=== PATIENT | male | born 1985 | race Hispanic/Latino ===

== ENCOUNTER 2018-08-28 22:45 | Emergency (ER) | payer OTHER ==
--- OUTSIDE RECORDS SUMMARY | 2018-08-28 22:48 | XMS REPORT ---
:1985 Author Organization eClinicalWorks Care Team Providers Name Role Phone Winston Gonzalez Provider Role Unavailable Allergies, Adverse Reactions, Alerts Substance Reaction Event Type N.K.D.A. Info Not Available Non Drug Allergy Problems Problem Type Condition Code Onset Dates Condition Status Assessment Encounter for immunization Z23 Active Problem Gastroesophageal reflux disease with K21.0 Active esophagitis Problem Family history of diabetes during Z84.89 Active Problem Hypertriglyceridemia E78.1 Active Assessment Family history of diabetes during Z8489 Active Assessment Hypertriglyceridemia E78.1 Active Assessment Gastroesophageal reflux disease with K21.0 Active esophagitis Medications Medication Code Code Instructions Start End Status Dosage System Date Date Pantoprazole [facility] [id number] 20 MG Orally Nov 07, Active 1 tablet Sodium Once a day 2018 Results No Known Results Immunizations Vaccine Administration Date TDAP > 7 Years-Adacel Nov 07, 2017 Summary Purpose eClinicalWorks Submission
[2018-08-29 00:08] LABS: Urine Blood NEGATIVE (NEG); Urine Glucose NEGATIVE (NEG); Urine Protein NEGATIVE (NEG)
[2018-08-29 00:12] LABS: Urine Bacteria <20 /HPF (NONE SEEN); Urine Culture Reflex Order NOT NEEDED; Urine RBC NONE SEEN /HPF (NONE SEEN)
--- NOTE | 2018-08-29 00:41 | ER ---
Nurse's Notes [facility] Name: Uri Montgomery Age: 33 yrs Sex: Male : 1985 Arrival Date: 08/28/2018 Time: 22:54 Bed 15 Private MD: Diagnosis: Generalized abdominal pain-enteritis Presentation: 08/28 22:54 Presenting complaint: Patient states: intermittent abd pain X 1day. pt stated he has ak1 had this pain before intermittent X"months" pt seen at urgent care today and sent to "[facility]" for US and lab work. pt had UA at urgent care today with negative results. Transition of care: patient was not received from another setting of care. Onset of symptoms is unknown. Risk Assessment: Do you want to hurt yourself or someone else? Patient reports no desire to harm self or others. Initial Sepsis Screen: Does the patient meet any 2 criteria? No. Patient's initial sepsis screen is negative. Does the patient have a suspected source of infection? No. Patient's initial sepsis screen is negative. Care prior to arrival: None. 22:54 Acuity: GEETA 3 ak1 22:54 Method Of Arrival: Ambulatory ak1 Triage Assessment: 22:56 General: Appears in no apparent distress. Behavior is calm, cooperative. ak1 Historical: - Allergies: 22:56 No Known Allergies; ak1 - Home Meds: 22:56 terbinafine HCl 250 mg Oral tab 1 tab once daily [Active]; ak1 - PMHx: 22:56 GERD; ak1 - PSHx: 22:56 None; ak1 - Immunization history:: Adult Immunizations unknown. - Social history:: Smoking status: Patient/guardian denies using tobacco. - Ebola Screening: : No symptoms or risks identified at this time. Screenin:17 Abuse screen: Denies threats or abuse. Nutritional screening: No deficits noted. ea Tuberculosis screening: No symptoms or risk factors identified. Fall Risk None identified. Assessment: 23:15 General: Appears in no apparent distress. Behavior is calm, cooperative, appropriate ea for age. Pain: Complains of pain in abdomen. Neuro: Level of Consciousness is awake, alert, obeys commands, Oriented to person, place, time, situation. Cardiovascular: Patient's skin is warm and dry. Respiratory: Airway is patent Respiratory effort is even, unlabored, Respiratory pattern is regular, symmetrical. GI: Abdomen is non-distended, Bowel sounds present X 4 quads. Abd is soft and non tender X 4 quads. Derm: Skin is dry, Skin is pale, Skin temperature is warm. 08/29 00:50 Reassessment: Patient and/or family updated on plan of care and expected duration. Pain ea level reassessed. Patient is alert, oriented x 3, equal unlabored respirations, skin warm/dry/pink. 01:13 Reassessment: Patient and/or family updated on plan of care and expected duration. Pain ea level reassessed. Patient is alert, oriented x 3, equal unlabored respirations, skin warm/dry/pink. Discharge instruction given to patient, verbalized the understanding of instruction. Pt left ED ambulatory with steady gate, pt tolerating well . Patient states feeling better. Patient states symptoms have improved. Vital Signs: 08/28 22:56 BP 137 / 78; Pulse 54; Resp 16; Temp 98; Pulse Ox 100% on R/A; Weight 63.5 kg (R); ak1 Height 5 ft. 8 in. (172.72 cm) (R); Pain 3/10; 23:30 BP 110 / 73; Pulse 54; Resp 18; Pulse Ox 98% ; ea 08/29 00:30 BP 106 / 74; Pulse 55; Resp 18; Pulse Ox 99% ; ea 01:00 BP 101 / 81; Pulse 55; Resp 18; Temp 97.8; Pulse Ox 98% on R/A; ea 08/28 22:56 Body Mass Index 21.29 (63.50 kg, 172.72 cm) ak1 ED Course: 08/28 22:54 Patient arrived in ED. ak1 22:55 Triage completed. ak1 22:56 Arm band placed on Patient placed in an exam room, on a stretcher, Patient notified of ak1 wait time. 23:06 Richard Gomez MD is Attending Physician. gs 23:10 Corin Lizama, KYLAH is Primary Nurse. ea 23:17 Patient has correct armband on for positive identification. Bed in low position. Call ea light in reach. 23:45 Inserted saline lock: 20 gauge in right antecubital area, using aseptic technique. ea 08/29 00:19 CT Abd/Pelvis - IV Contrast Only In Process Unspecified. EDMS 00:39 Paulo Rodriguez MD is Referral Physician. 01:00 IV discontinued, intact, bleeding controlled, No redness/swelling at site. Pressure ea dressing applied. 01:13 No provider procedures requiring assistance completed. ea Administered Medications: 01:10 Drug: predniSONE 40 mg Route: PO; ea 01:15 Follow up: Response: Medication administered at discharge. ea Outcome: 00:40 Discharge ordered by MD. gs 01:14 Discharged to home ambulatory. ea 01:14 Condition: stable 01:14 Discharge instructions given to patient, Instructed on discharge instructions, follow up and referral plans. medication usage, Demonstrated understanding of instructions, follow-up care, medications, Prescriptions given X 1. 01:16 Patient left the ED. ea Signatures: Dispatcher [employer] EDFL Lisa Duffy, RN RN Corin Lucio RN RN Richard Leonardo MD MD
--- NOTE | 2018-08-29 00:41 | EDPHYS ---
Physician Documentation [facility] Name: Uri Montgomery Age: 33 yrs Sex: Male : 1985 Arrival Date: 08/28/2018 Time: 22:54 Bed 15 Private MD: ED Physician Richard Gomez HPI: 08/29 03:55 This 33 yrs old Male presents to ER via Ambulatory with complaints of gs Abdominal Pain. 03:55 The patient presents with abdominal pain that is diffuse. Onset: The symptoms/episode gs began/occurred 4 day(s) ago. Associated signs and symptoms: Pertinent positives: nausea, Pertinent negatives: blood in stools, dysuria, fever, vomiting blood. The symptoms are described as crampy, intermittent. Modifying factors: The symptoms are alleviated by nothing, the symptoms are aggravated by nothing. Severity of pain: At its worst the pain was moderate in the emergency department the pain is unchanged. The patient has experienced similar episodes in the past, a few times. 03:55 The patient has been recently seen by a physician: yesterday, with similar presenting gs complaints, lab tests were done, an ultrasound was done. Historical: - Allergies: 08/28 22:56 No Known Allergies; ak1 - Home Meds: 22:56 terbinafine HCl 250 mg Oral tab 1 tab once daily [Active]; ak1 - PMHx: 22:56 GERD; ak1 - PSHx: 22:56 None; ak1 - Immunization history:: Adult Immunizations unknown. - Social history:: Smoking status: Patient/guardian denies using tobacco. - Ebola Screening: : No symptoms or risks identified at this time. ROS: 08/29 03:55 All other systems are negative. gs Exam: 03:55 Head/Face: Normocephalic, atraumatic. Eyes: Pupils equal round and reactive to light, gs extra-ocular motions intact. Lids and lashes normal. Conjunctiva and sclera are non-icteric and not injected. Cornea within normal limits. Periorbital areas with no swelling, redness, or edema. ENT: Nares patent. No nasal discharge, no septal abnormalities noted. Tympanic membranes are normal and external auditory canals are clear. Oropharynx with no redness, swelling, or masses, exudates, or evidence of obstruction, uvula midline. Mucous membranes moist. Neck: Trachea midline, no thyromegaly or masses palpated, and no cervical lymphadenopathy. Supple, full range of motion without nuchal rigidity, or vertebral point tenderness. No Meningismus. Chest/axilla: Normal chest wall appearance and motion. Nontender with no deformity. No lesions are appreciated. Cardiovascular: Regular rate and rhythm with a normal S1 and S2. No gallops, murmurs, or rubs. Normal PMI, no JVD. No pulse deficits. Respiratory: Lungs have equal breath sounds bilaterally, clear to auscultation and percussion. No rales, rhonchi or wheezes noted. No increased work of breathing, no retractions or nasal flaring. Back: No spinal tenderness. No costovertebral tenderness. Full range of motion. Skin: Warm, dry with normal turgor. Normal color with no rashes, no lesions, and no evidence of cellulitis. MS/ Extremity: Pulses equal, no cyanosis. Neurovascular intact. Full, normal range of motion. Neuro: Awake and alert, GCS 15, oriented to person, place, time, and situation. Cranial nerves II-XII grossly intact. Motor strength 5/5 in all extremities. Sensory grossly intact. Cerebellar exam normal. Normal gait. 03:55 Constitutional: The patient appears alert, awake. 03:55 Abdomen/GI: Palpation: mild abdominal tenderness, in all quadrants, rebound tenderness, is not appreciated. Vital Signs: 08/28 22:56 BP 137 / 78; Pulse 54; Resp 16; Temp 98; Pulse Ox 100% on R/A; Weight 63.5 kg (R); ak1 Height 5 ft. 8 in. (172.72 cm) (R); Pain 3/10; 23:30 BP 110 / 73; Pulse 54; Resp 18; Pulse Ox 98% ; ea 08/29 00:30 BP 106 / 74; Pulse 55; Resp 18; Pulse Ox 99% ; ea 01:00 BP 101 / 81; Pulse 55; Resp 18; Temp 97.8; Pulse Ox 98% on R/A; ea 08/28 22:56 Body Mass Index 21.29 (63.50 kg, 172.72 cm) ak1 MDM: 08/28 23:15 Patient medically screened. gs 08/29 03:55 Differential diagnosis: diverticulitis, Irritable bowel syndrome, non-specific abd gs pain, pancreatitis. Data reviewed: vital signs, nurses notes, lab test result(s), radiologic studies. Counseling: I had a detailed discussion with the patient and/or guardian regarding: the historical points, exam findings, and any diagnostic results supporting the discharge/admit diagnosis. Response to treatment: the patient's symptoms have markedly improved after treatment, the patient's condition has returned to base line. 08/28 23:26 Order name: Urine Microscopic Only 08/28 23:56 Order name: Urine Dipstick--Ancillary (enter results) mw2 08/28 23:21 Order name: CT Abd/Pelvis - IV Contrast Only 08/28 23:26 Order name: Urine Dipstick-Ancillary (obtain specimen); Complete Time: 23:55 Administered Medications: 01:10 Drug: predniSONE 40 mg Route: PO; ea 01:15 Follow up: Response: Medication administered at discharge. ea Disposition: 08/29/18 00:40 Discharged to Home. Impression: Generalized abdominal pain - enteritis. - Condition is Stable. - Discharge Instructions: Abdominal Pain, Adult. - Prescriptions for Prednisone 20 mg Oral Tablet - take 2 tablet by ORAL route once daily for 5 days; 10 tablet. - Work release form, Medication Reconciliation Form, Thank You Letter, Antibiotic Education, Prescription Opioid Use form. - Follow up: Paulo Rodriguez MD; When: 2 - 3 days; Reason: Re-evaluation by your physician. Signatures: Dispatcher [employer] EDMS Lisa Duffy RN RN ak1 Corin Lizama RN RN ea Starr, Gregory, MD MD Corrections: (The following items were deleted from the chart) 01:16 00:40 08/29/2018 00:40 Discharged to Home. Impression: Generalized abdominal pain - ea enteritis. Condition is Stable. Forms are Medication Reconciliation Form, Thank You Letter, Antibiotic Education, Prescription Opioid Use. Follow up: Paulo Rodriguez; When: 2 - 3 days; Reason: Re-evaluation by your physician. gs
[2018-08-29] MEDS ORDERED: predniSONE 20 MG TAB ONE (01:24)
--- NOTE | 2018-08-29 09:51 | RAD REPORT ---
EXAM DESCRIPTION: CT - Abdomen Pelvis W Contrast - 08/29/2018 2:38 am CLINICAL HISTORY: Abdominal pain. COMPARISON: None. TECHNIQUE: CT scan of the abdomen and pelvis was performed with IV contrast. This exam was performed according to our departmental dose-optimization program, which includes automated exposure control, adjustment of the mA and/or kV according to patient size and/or use of iterative reconstruction techn ique. FINDINGS: The lung bases are clear. No pleural or pericardial effusions. There is no hiatal hernia. The liver, gallbladder, spleen, pancreas, adrenal glands, and kidneys are unremarkable. No hydronephr osis or urinary stones are identified. The pelvic organs are also unremarkable. There are numerous fluid-filled small bowel loops with decompressed terminal ileum small bowel loops mildly dilated measuring up to 3.6 cm with mucosal hyperenhancement. These findings are suggestive of enteritis and terminal ileitis. The appendix is normal. There is a small amount pelvic free fluid. The aorta is normal caliber. No acute bony findings are seen. No pathologic body wall hernia is seen. IMPRESSION: 1. Findings consistent with enteritis and terminal ileitis, which may be infectious or inflammatory etiology. 2. Normal appendix. Electronically signed by: David Burrell MD 08/29/2018 12:27 AM CDT Due to temporary technical issues with the PACS/Fluency reporting system, reports are being signed by the in house radiologist as a courtesy to ensure prompt reporting. The interpreting radiologist is f ully responsible for the content of the report.
== END 2018-08-29 01:16 | disposition home or self-care (01) ==
LOC: ER 22:45
DX: K52.9 Noninfective gastroenteritis and colitis, unspecified (principal); K21.9 Gastro-esophageal reflux disease without esophagitis
CPT/HCPCS: 74177; 81003; 81015; 99284; J7512; Q9967

== ENCOUNTER 2021-08-26 12:10 | Emergency (ER) | payer OTHER, SELFPAY ==
--- OUTSIDE RECORDS SUMMARY | 2021-08-26 12:11 | XMS REPORT | Continuity of Care Document ---
:1985 Author Organization [facility] t Address [address] [place] [address] Care Team Providers Name Role Phone Unavailable Unavailable Unavailable Problems Condition Condition Condition Status Onset Resolution Last Treating Co mments Source Name Details Category Date Date Treatment Clinician Date Encounter Encounter Diagnosis Active C ommon for for Spirit immunizati immunizati - [facility] on on [facility] Gastroesop Gastroesop Diagnosis Active Common hageal hageal Spirit reflux reflux - [facility] disease disease St with with [facility] esophagiti esophagiti [facility] Family Family Diagnosis Active Common history of history of Sp patti diabetes diabetes - [facility] during during [facility] Hypertrigl Hypertrigl Diagnosis Active Common yceridemia yceridemia Sp patti - [facility] Allergies, Adverse Reactions, Alerts This patient has no known allergies or adverse reactions. Medications Ordered Filled Start Stop Current Ordering Indication Dosage Frequency Signature Comments Components Source Medication Medication Date Date Medication? Clinician (SIG) Name Name Pantoprazol Pantoprazol Yes Winston 1 tablet Common e Sodium e Sodium 8-27 Carlos Spirit 00:00: - [facility] Immunizations Ordered Immunization Filled Immunization Date Status Commen ts Source Name Name TDAP > 7 TDAP > 7 2017-11-07 Completed Common [facility] Years-Adacel Years-Adacel 00:00:00 - [facility] Procedures This patient has no known procedures. Encounters Start End Encounter Admission Attending Care Care Encounter Source Date/Time Date/Time Type Type Clinicians Facility Department ID 2017-11-07 2017-11-07 [id number] Common 15:00:00 15:00:00 [facility] [address] [facility] Family Medicine [facility] Results This patient has no known results.
[2021-08-26 14:18] LABS: Absolute Lymphocytes (CBC) 1.4 K/uL (0.7-4.9); Hematocrit 40.8 % (39.6-49.0); Lymphocytes % 26.4 % (15.3-44.8); MPV 8.1 fL (7.6-11.3); RBC Red Blood Cell Count 4.68 M/uL (4.33-5.43)
[2021-08-26 14:32] LABS: AST/SGOT 150 U/L (15-37); Albumin 3.8 g/dL (3.4-5.0); Alkaline Phosphatase 48 U/L (45-117); BUN Blood Urea Nitrogen 11 mg/dL (7-18); Bicarbonate 29 mmol/L (21-32); Bilirubin Total 0.2 mg/dL (0.2-1.0); Creatine Phosphokinase 532 U/L (39-308); Glomerular Filtration Rate 92 ml/min (=/>90); Glucose Level 113 mg/dL (74-106); Magnesium 2.4 mg/dL (1.8-2.4); Potassium 3.6 mmol/L (3.5-5.1); Sodium Level 136 mmol/L (136-145); Troponin High Sensitivity 3.7 pg/mL (<58.9)
[2021-08-26 14:40] LABS: Bilirubin Direct < 0.1 mg/dL (0-0.2)
[2021-08-26 14:41] LABS: Urine Blood Trace-intact (Negative); Urine Glucose Negative (Negative); Urine Protein Negative (Negative)
[2021-08-26 14:43] LABS: ALT/SGPT 449 U/L (12-78)
[2021-08-26 14:59] LABS: Barbiturates NEGATIVE (NEGATIVE); Benzodiazepines NEGATIVE (NEGATIVE); Cocaine NEGATIVE (NEGATIVE); METHAMPHETAM NEGATIVE (NEGATIVE); Methadone NEGATIVE (NEGATIVE); Opiates NEGATIVE (NEGATIVE); Phencyclidine NEGATIVE (NEGATIVE); THC Cannibis NEGATIVE (NEGATIVE)
--- NOTE | 2021-08-26 16:32 | RAD REPORT ---
EXAM DESCRIPTION: CTAbdomen Pelvis W Contrast - 08/26/2021 4:23 pm CLINICAL HISTORY: abnormal liver enzymes COMPARISON: Abdomen Pelvis W Contrast dated 08/28/2018 TECHNIQUE: CT of the abdomen and pelvis was performed. All CT scans are performed using dose optimization technique as appropriate and may include automated exposure control or mA/KV adjustment according to patient size. FINDINGS: Lower chest: Mild distal esophageal wall thickening which may reflect esophagitis. Liver: No acute abnormality or suspicious lesions. Biliary: No biliary ductal dilatation. Stomach: No significant focal abnormality. Duodenum: No significant focal abnormality. Pancreas: No significant abnormality. Spleen: No significant abnormality. Adrenal: No suspicious lesions. Kidney/ureter: No hydronephrosis. No renal calculi. Retroperitoneum: No retroperitoneal adenopathy. Vascular: No aneurysm. Bowel: No significant focal abnormality. Normal appendix. Peritoneum: No ascites or free air. Bladder: Grossly unremarkable. Reproductive: No adnexal masses. Bones: No acute fracture. Other: n/a IMPRESSION: No acute intra-abdominal or pelvic finding. Normal appendix.
--- NOTE | 2021-08-26 16:55 | EDPHYS ---
Physician Documentation [facility] Name: Uri Montgomery Age: 36 yrs Sex: Male : 1985 Arrival Date: 08/26/2021 Time: 12:11 Bed 14 Private MD: ED Physician Vance High HPI: 08/26 13:20 This 36 yrs old Male presents to ER via Ambulatory with complaints of Weakness.cp 13:20 The patient presents to the emergency department with weakness of the entire body, cp generalized weakness. Onset: The symptoms/episode began/occurred today. 13:20 Associated signs and symptoms: Pertinent positives: near-syncope, fatigue, Pertinent cp negatives: altered mental status, fever, headache, neck stiffness. 13:20 Patient's baseline: Neuro: alert and fully oriented, Motor: no deficits, Ambulation: cp walks without assistance, Speech: normal. Current symptoms: fatigue, general weakness. 13:20 Patient admits to taking Anadrol steroids over past several weeks. cp Historical: - Allergies: 12:34 No Known Allergies; tw2 - Home Meds: 12:34 None [Active]; tw2 - PMHx: 12:34 GERD; tw2 - PSHx: 12:34 None; tw2 - Immunization history:: Client reports having NOT received the Covid vaccine. - Social history:: Smoking status: Patient denies any tobacco usage or history of. ROS: 13:30 Constitutional: Positive for fatigue, Negative for body aches, chills, fever, poor PO cp intake, weight loss. 13:30 Eyes: Negative for injury, pain, redness, and discharge. cp 13:30 ENT: Negative for drainage from ear(s), ear pain, sore throat, difficulty swallowing, difficulty handling secretions. 13:30 Cardiovascular: Negative for chest pain, edema, palpitations. 13:30 Respiratory: Negative for cough, shortness of breath, wheezing. 13:30 Abdomen/GI: Negative for abdominal pain, vomiting, diarrhea, constipation. 13:30 Neuro: Positive for near syncope, weakness, Negative for altered mental status, dizziness, headache, speech changes, visual changes. 13:30 All other systems are negative. Exam: 13:35 Constitutional: The patient appears in no acute distress, alert, awake, comfortable, cp non-diaphoretic, non-toxic, well developed, well nourished. 13:35 Head/Face: Normocephalic, atraumatic. cp 13:35 Eyes: Periorbital structures: appear normal, Pupils: equal, round, and reactive to light and accomodation, Extraocular movements: intact throughout, Conjunctiva: normal, no exudate, no injection, Sclera: no appreciated abnormality, Lids and lashes: appear normal, bilaterally. 13:35 ENT: External ear(s): are unremarkable, Nose: is normal, Mouth: Lips: moist, Oral mucosa: pink and intact, moist, Posterior pharynx: Airway: no evidence of obstruction, patent, erythema, is not appreciated, exudate, is not appreciated. 13:35 Neck: ROM/movement: is normal, is supple, without pain, no range of motions limitations. 13:35 Chest/axilla: Inspection: normal, Palpation: is normal, no crepitus, no tenderness. 13:35 Cardiovascular: Rate: normal, Rhythm: regular, Heart sounds: murmur, not appreciated, Edema: is not appreciated. 13:35 Respiratory: the patient does not display signs of respiratory distress, Respirations: normal, no use of accessory muscles, no retractions, labored breathing, is not present, Breath sounds: are clear throughout, no decreased breath sounds, no stridor, no wheezing. 13:35 Abdomen/GI: Inspection: abdomen appears normal, Palpation: abdomen is soft and non-tender, in all quadrants. 13:35 Back: pain, is absent, ROM is normal. 13:35 Skin: Appearance: Color: normal in color, cellulitis, is not appreciated, no rash present. 13:35 Neuro: Orientation: to person, place \T\ time. Mentation: is normal, Motor: moves all fours, strength is normal, Sensation: is normal, Gait: is steady, at a normal pace, without difficulty. Vital Signs: 12:32 BP 103 / 85; Pulse 86; Resp 17; Temp 98.9(TE); Pulse Ox 100% on R/A; Weight 70.31 kg; tw2 Height 5 ft. 8 in. (172.72 cm); Pain 0/10; 14:45 BP 103 / 72; Pulse 58; Resp 18; Pulse Ox 100% ; ww 15:30 BP 103 / 66; Pulse 57; Resp 18; Pulse Ox 100% ; ww 16:13 BP 105 / 68; Pulse 56; Resp 18; Pulse Ox 100% ; ww 17:15 BP 116 / 55; Pulse 61; Resp 18; Pulse Ox 100% on R/A; ww 12:32 Body Mass Index 23.57 (70.31 kg, 172.72 cm) tw2 MDM: 14:37 Patient medically screened. 16:55 Data reviewed: vital signs, nurses notes, lab test result(s), EKG, radiologic studies, cp CT scan. 16:55 Counseling: I had a detailed discussion with the patient and/or guardian regarding: the cp historical points, exam findings, and any diagnostic results supporting the discharge/admit diagnosis, lab results, radiology results, the need for outpatient follow up, a account executive key accounts, to return to the emergency department if symptoms worsen or persist or if there are any questions or concerns that arise at home. Response to treatment: the patient's symptoms have mildly improved after treatment, and as a result, I will discharge patient. ED course: VSS. Patient appears non-toxic. Discussed results of labs and CT abdomen/pelvis, need to avoid alcohol, tylenol and stop steroids. Will discharge to home to f/u with GI. 08/26 13:17 Order name: Basic Metabolic Panel; Complete Time: 15:42 cp 08/26 15:42 Interpretation: Normal except: GLUC 113. cp 08/26 13:17 Order name: CBC with Diff; Complete Time: 15:42 cp 08/26 15:42 Interpretation: Normal except: HGB 13.3. cp 08/26 13:17 Order name: LFT's; Complete Time: 15:42 08/26 15:43 Interpretation: Normal except: AST 150; ALT 449; A/G 0.9. cp 08/26 13:17 Order name: Magnesium; Complete Time: 15:42 cp 08/26 13:17 Order name: Troponin HS; Complete Time: 15:42 cp 08/26 13:17 Order name: CK; Complete Time: 15:42 cp 08/26 15:43 Interpretation: Abnormal: CPK 532. 08/26 13:17 Order name: EKG; Complete Time: 13:18 cp 08/26 13:17 Order name: Cardiac monitoring; Complete Time: 14:31 cp 08/26 13:17 Order name: EKG - Nurse/Tech; Complete Time: 14:42 08/26 13:17 Order name: IV Saline Lock; Complete Time: 13:53 08/26 13:17 Order name: UDS; Complete Time: 15:42 08/26 14:41 Order name: Urine Dipstick-Ancillary; Complete Time: 15:42 EDDE 08/26 15:45 Order name: CT Abd/Pelvis - IV Contrast Only; Complete Time: 16:34 08/26 16:34 Interpretation: Report reviewed. 08/26 13:17 Order name: Labs collected and sent; Complete Time: 13:53 08/26 13:17 Order name: O2 Per Protocol; Complete Time: 14:31 08/26 13:17 Order name: O2 Sat Monitoring; Complete Time: 14:31 08/26 13:17 Order name: Urine Dipstick-Ancillary (obtain specimen); Complete Time: 14:42 cp Administered Medications: 17:11 Drug: NS 0.9% 1000 ml Route: IV; Rate: 1 bolus; Site: left antecubital; ww Disposition: 19:21 Co-signature as Attending Physician, Vance High MD I agree with the assessment and kdr plan of care. Disposition Summary: 08/26/21 16:55 Discharge Ordered Location: Home cp Problem: new cp Symptoms: have improved cp Condition: Stable cp Diagnosis - Abnormal results of liver function studies cp - Esophagitis, unspecified cp Followup: cp - With: Hector Gutierrez MD - When: 2 - 3 days - Reason: elevated liver enzymes Discharge Instructions: - Discharge Summary Sheet cp - Esophagitis cp - Liver Function Tests cp - Form - Excuse from Work, School, or Physical Activity cp Forms: - Medication Reconciliation Form cp - Thank You Letter cp - Antibiotic Education cp - Prescription Opioid Use cp - Work release form mb7 Prescriptions: - Protonix 40 mg Oral Tablet - take 1 tablet by ORAL route once daily; 30 tablet; Refills: 0, Product cp Selection Permitted Signatures: Dispatcher [employer] Vance Bar MD MD kdr Page, Corey, PA PA cp Ciarra Eaton RN RN tw2 Paige Martinez RN RN ww Corrections: (The following items were deleted from the chart) 15:43 15:42 Normal except: AST 150; ALT 449. cp cp 08/27 16:45 08/26 13:20 Associated signs and symptoms: Pertinent positives: fatigue, Pertinent cp negatives: fever, headache, neck stiffness, cp 08/27 16:48 08/26 13:30 Constitutional: Negative for body aches, chills, fever, poor PO intake, cp cp
--- NOTE | 2021-08-26 16:55 | ER ---
Nurse's Notes [facility] Name: Uri Montgomery Age: 36 yrs Sex: Male : 1985 Arrival Date: 08/26/2021 Time: 12:11 Bed 14 Private MD: Diagnosis: Abnormal results of liver function studies;Esophagitis, unspecified Presentation: 08/26 12:32 Chief complaint: Patient states: i started feeling like i was going to black out about tw2 an hour ago. i work outside. i madi felt like i was in a panic. i also started testosterone shots 250 mg Tuesday was the last one. and started taking Anadrol as well so i am not sure if this has something to do with them or note. but i have been taking the andadrol for 3 weeks. Coronavirus screen: At this time, the client does not indicate any symptoms associated with coronavirus-19. Ebola Screen: Patient denies travel to an Ebola-affected area in the 21 days before illness onset. Initial Sepsis Screen: Does the patient meet any 2 criteria? No. Patient's initial sepsis screen is negative. Does the patient have a suspected source of infection? No. Patient's initial sepsis screen is negative. Risk Assessment: Do you want to hurt yourself or someone else? Patient reports no desire to harm self or others. Onset of symptoms was August 26, 2021. 12:32 Method Of Arrival: Ambulatory tw2 12:32 Acuity: GEETA 3 tw2 Triage Assessment: 12:34 General: Appears in no apparent distress. slender, well groomed, Behavior is calm, tw2 cooperative, appropriate for age. Pain: Denies pain. Historical: - Allergies: 12:34 No Known Allergies; tw2 - Home Meds: 12:34 None [Active]; tw2 - PMHx: 12:34 GERD; tw2 - PSHx: 12:34 None; tw2 - Immunization history:: Client reports having NOT received the Covid vaccine. - Social history:: Smoking status: Patient denies any tobacco usage or history of. Screenin:18 Abuse screen: Denies threats or abuse. Nutritional screening: No deficits noted. tw2 Tuberculosis screening: No symptoms or risk factors identified. Fall Risk None identified. Assessment: 15:00 General: Appears in no apparent distress. Behavior is calm, cooperative. Pain: ww Complains of pain in chest. Neuro: Level of Consciousness is awake, alert, obeys commands, Oriented to person, place, time, situation, Gait is steady, Speech is normal. Cardiovascular: Capillary refill < 3 seconds Patient's skin is warm and dry. Rhythm is regular. Respiratory: Airway is patent Respiratory effort is even, unlabored, Respiratory pattern is regular, symmetrical. GI: Abdomen is non-distended. Derm: No signs and/or symptoms reported regarding the dermatologic system. Skin is intact, is healthy with good turgor. 16:13 Reassessment: Patient appears in no apparent distress at this time. No changes from previously documented assessment. Patient and/or family updated on plan of care and expected duration. Pain level reassessed. Patient is alert, oriented x 3, equal unlabored respirations, skin warm/dry/pink. 17:15 Reassessment: Patient appears in no apparent distress at this time. No changes from ww previously documented assessment. Patient and/or family updated on plan of care and expected duration. Pain level reassessed. Patient is alert, oriented x 3, equal unlabored respirations, skin warm/dry/pink. patient informed of receiving IV fluids and then discharging home. Vital Signs: 12:32 BP 103 / 85; Pulse 86; Resp 17; Temp 98.9(TE); Pulse Ox 100% on R/A; Weight 70.31 kg; tw2 Height 5 ft. 8 in. (172.72 cm); Pain 0/10; 14:45 BP 103 / 72; Pulse 58; Resp 18; Pulse Ox 100% ; ww 15:30 BP 103 / 66; Pulse 57; Resp 18; Pulse Ox 100% ; ww 16:13 BP 105 / 68; Pulse 56; Resp 18; Pulse Ox 100% ; ww 17:15 BP 116 / 55; Pulse 61; Resp 18; Pulse Ox 100% on R/A; ww 12:32 Body Mass Index 23.57 (70.31 kg, 172.72 cm) tw2 ED Course: 12:11 Patient arrived in ED. rg4 12:34 Triage completed. tw2 12:34 Arm band placed on. tw2 12:36 Dameon Durbin PA is PHCP. cp 12:36 Vance High MD is Attending Physician. cp 13:52 Inserted saline lock: 22 gauge in left antecubital area, using aseptic technique. Blood tp1 collected. 14:25 Bed in low position. Call light in reach. tw2 14:30 Paige Martinez, RN is Primary Nurse. ww 14:45 EKG done, by ED staff. tp1 16:25 CT Abd/Pelvis - IV Contrast Only In Process Unspecified. EDMS 16:54 Hector Gutierrez MD is Referral Physician. cp 18:03 No provider procedures requiring assistance completed. IV discontinued, intact, ww bleeding controlled, No redness/swelling at site. Pressure dressing applied. Administered Medications: 17:11 Drug: NS 0.9% 1000 ml Route: IV; Rate: 1 bolus; Site: left antecubital; ww Medication: 15:18 VIS not applicable for this client. tw2 Outcome: 16:55 Discharge ordered by . cp 18:03 Discharged to home ambulatory. ww 18:03 Condition: stable 18:03 Discharge instructions given to patient, Instructed on discharge instructions, follow up and referral plans. medication usage, safety practices, Demonstrated understanding of instructions, follow-up care, medications, Prescriptions given X 1. 18:17 Patient left the ED. ww Signatures: Dispatcher [employer] EDMS Dameon Durbin PA PA cp Wise, Tara, RN RN tw2 Kaila Beyer rg4 Swati Spear tp1 Paige Martinez RN RN ww Corrections: (The following items were deleted from the chart) 12:36 12:32 Chief complaint: Patient states: i started feeling like i was going to black out tw2 about an hour ago. i work outside. i madi felt like i was in a panic tw2
[2021-08-26] MEDS ORDERED: NA CHLORIDE 0.9% 1,000 ML ONE (17:13)
[2021-08-26 18:26] VITALS: TEMP 98.9; O2SAT 100
[2021-08-26 18:38] VITALS: BP 116/55
--- NOTE | 2021-08-26 19:16 | EKG ---
Test Date: 2021-08-26 Test Time: 14:31:27 Smudger: KIKE MEASUREMENT RESULTS: Intervals: Rate: 51 AK: 164 QRSD: 102 QT: 384 QTc: 353 [place]: P: 66 AK: 164 QRS: 82 T: 69 INTERPRETIVE STATEMENTS: Sinus bradycardia Otherwise normal ECG Compared to ECG 03/19/2017 04:02:04 Sinus rhythm no longer present Electronically Signed On 08-26-21 19:15:40 CDT by Richard Best
== END 2021-08-26 18:17 | disposition home or self-care (01) ==
LOC: ER 12:10
DX: R94.5 Abnormal results of liver function studies (principal); K20.90 Esophagitis, unspecified without bleeding; K21.9 Gastro-esophageal reflux disease without esophagitis
CPT/HCPCS: 36415; 74177; 80048; 80076; 80307; 81003; 82550; 83735; 84484; 85025; 93005; 99284; J7030; Q9967